=== PATIENT | female | born 1945 | race Asian ===

== ENCOUNTER 2016-12-13 06:43 | Outpatient (CLI) | payer MEDICARE, BC | END 2016-12-13 06:44 | disposition home or self-care (01) | DX: E78.5 Hyperlipidemia, unspecified (principal); E11.9 Type 2 diabetes mellitus without complications ==

== ENCOUNTER 2017-05-07 11:18 | Outpatient (CLI) | payer MEDICARE, BC ==
[2017-05-07 20:04] LABS: HEMOGLOBIN A1C 0.66 g/dL
== END 2017-05-07 11:19 | disposition home or self-care (01) ==
LOC: LAB.WCP 11:18
PROVIDERS: ATTEND Family Medicine
DX: E11.9 Type 2 diabetes mellitus without complications (principal)
CPT/HCPCS: 36415; 83036

== ENCOUNTER 2017-11-07 08:00 | Outpatient (CLI) | payer MEDICARE, BC ==
[2017-11-07 13:23] LABS: ALBUMIN/GLOBULIN RATIO 1.3 (1.0-2.2); BILIRUBIN,TOTAL 0.8 mg/dL (0.2-1.0); BUN - BLOOD UREA NITROGEN 14 mg/dL (6-20); CALCIUM 9.7 mg/dL (8.5-10.3); CARBON DIOXIDE - CO2 28 mmol/L (21-32); CHLORIDE 98 mmol/L (101-111); CHOL/HDL RATIO 2.6 (<4.4); CHOLESTEROL 169 mg/dL; CREATININE 0.7 mg/dL (0.4-1.0); GFR - MDRD 82 (>89); GLUCOSE 122 mg/dL (70-100); HDL CHOLESTEROL 65 mg/dL; LDL/HDL RATIO 1.1 (<4.4); POTASSIUM 3.5 mmol/L (3.5-5.0); SODIUM 136 mmol/L (135-145); TOTAL PROTEIN 8.2 g/dL (6.7-8.2); TRIGLYCERIDES 159 mg/dL; VLDL CHOLESTEROL 32 mg/dL
[2017-11-07 13:31] LABS: HEMOGLOBIN A1C 0.72 g/dL
== END 2017-11-07 08:01 | disposition home or self-care (01) ==
LOC: LAB.WCP 08:00
PROVIDERS: ATTEND Family Medicine
DX: I10 Essential (primary) hypertension (principal); E11.9 Type 2 diabetes mellitus without complications; E78.5 Hyperlipidemia, unspecified
CPT/HCPCS: 36415; 80053; 80061; 82043; 83036

== ENCOUNTER 2018-04-15 11:13 | Outpatient (CLI) | payer MEDICARE, BC ==
[2018-04-15 20:08] LABS: HB2 TOTAL 13.3 g/dL; HEMOGLOBIN A1C 0.65 g/dL; HEMOGLOBIN A1C % 6.6 % (4.6-6.2)
== END 2018-04-15 11:14 ==
LOC: LAB.WCP 11:13
PROVIDERS: ATTEND Family Medicine
DX: I10 Essential (primary) hypertension (principal); E11.9 Type 2 diabetes mellitus without complications
CPT/HCPCS: 36415; 83036

== ENCOUNTER 2018-09-15 19:52 | Emergency (ER) | payer MEDICARE, BC ==
--- NOTE | 2018-09-15 22:19 | ED Physician Documentation ---
PD HPI HEADACHE - Stated complaint Stated Complaint: HEAD PX/LT SIDE - Chief complaint Chief Complaint: Neuro - History obtained from History obtained from: Patient - History of Present Illness Timing - onset: Today (early afternoon) Timing - onset during: Light activity Timing - details: Gradual onset, Waxing and waning Pain level now: 6 Worst headache ever?: No: Worst headache ever? Location: Back, Left Quality: Throbbing, Aching Associated symptoms: Nausea (mild). No: Fever, Stiff neck, Vomiting, Weakness, Numbness, Vision changes Improved by: Other (improved after taking aleve (also took tylenol and excedrin earlier today, although those did not seem to provide any relief)) Worsened by: Other (no exacerbating factors) Similar symptoms before: Has not had sx before Recently seen: Not recently seen Review of Systems Constitutional: denies: Fever, Chills, Sweats Eyes: denies: Loss of vision, Decreased vision Neurologic: reports: Headache. denies: Generalized weakness, Focal weakness, Numbness, Confused, Altered mental status, Head injury PD PAST MEDICAL HISTORY - Past Medical History Cardiovascular: Hypertension, High cholesterol Respiratory: None Endocrine/Autoimmune: Type 2 diabetes GI: None TOBACCO SHAKER: Breast cancer : None HEENT: None Psych: None Musculoskeletal: None Derm: None - Past Surgical History Past Surgical History: Yes General: Cholecystectomy /TOBACCO SHAKER: Mastectomy - Present Medications Home Medications: Ambulatory Orders Medication Instructions Recorded Confirmed Aspirin [Children's Aspirin] 81 mg PO DAILY 02/13/14 09/01/18 Hydrochlorothiazide 25 mg PO DAILY 02/13/14 09/01/18 Lovastatin 10 mg PO DAILY 02/13/14 09/01/18 Metoprolol Tartrate 50 mg PO BID 02/13/14 09/01/18 Potassium Chloride [Klor-Con M20] 20 meq PO BID 02/13/14 09/01/18 metFORMIN [Glucophage] 500 mg PO BID 02/13/14 09/01/18 Ascorbic Acid [Vitamin C] 1,000 mg PO BID 11/15/14 09/01/18 Cholecalciferol (Vitamin D3) 400 unit PO DAILY 11/15/14 09/01/18 [Vitamin D] Ranitidine HCl [Zantac] 150 mg PO DAILY 03/28/15 09/01/18 Lactobac No.41/Bifidobact No.7 1 tab PO DAILY 03/03/18 09/01/18 [Probiotic-10 3 Billion Cell Cp] Palbociclib [Ibrance] 125 mg PO DAILY 03/31/18 09/01/18 Ondansetron Odt [Zofran] 4 mg TL Q6H PRN #10 tablet 09/16/18 oxyCODONE/ACET 5/325 [Percocet 5 1 - 2 each PO Q6H PRN #14 tablet 09/16/18 mg/325 mg] - Allergies Allergies/Adverse Reactions: Allergies Allergy/AdvReac Type Severity Reaction Status Date / Time cephalexin AdvReac Dizziness Verified 09/15/18 20:07 hydrocodone bitartrate * AdvReac vomiting Verified 09/15/18 20:07 [From Vicodin] - Social History Does the pt smoke?: No Smoking Status: Never smoker Does the pt drink ETOH?: No Does the pt have substance abuse?: No - Immunizations Immunizations are current?: No Immunizations: TDAP >10years/unknown PD ED PE NORMAL - Vitals Vital signs reviewed: Yes - General General: Alert and oriented X 3, No acute distress, Well developed/nourished - HEENT HEENT: PERRL, EOMI - Neck Neck: Supple, no meningeal sign - Neuro Neuro: Alert and oriented X 3, senior writer 2-12 intact, No motor deficit, No sensory deficit, Normal speech Eye Opening: Spontaneous Motor: Obeys Commands Verbal: Oriented GCS Score: 15 Results - Vitals Vitals: Vital Signs - 24 hr 09/15/18 09/16/18 20:02 00:19 Temperature 36.1 C L Heart Rate 61 51 L Respiratory 16 16 Rate Blood Pressure 187/49 H 160/56 H O2 Saturation 100 99 Oxygen O2 Source Room air - Rads (name of study) CT head Radiology: Prelim report reviewed, See rad report PD MEDICAL DECISION MAKING - ED course Complexity details: reviewed results, re-evaluated patient, considered differential, d/w patient, d/w family Departure - Departure Disposition: 01 Home, Self Care Clinical Impression: Headache Condition: Good Instructions: ED Cephalgia Unspecified Follow-Up: Juliana Cassidy MD [Primary Care Provider] - (2-3 days if symptoms persist) Prescriptions: Ondansetron Odt [Zofran] 4 mg TL Q6H PRN #10 tablet PRN Reason: Nausea / Vomiting oxyCODONE/ACET 5/325 [Percocet 5 mg/325 mg] 1 - 2 each PO Q6H PRN #14 tablet PRN Reason: Pain Discharge Date/Time: 09/16/18 00:20
[2018-09-15] MEDS ORDERED: IBUPROFEN 400 MG TABLET PO STA (22:31)
--- NOTE | 2018-09-15 23:44 | CT Report ---
Reason: headache Procedure Date: 09/15/2018 Accession Number: [id number] / [id number] Procedure: CT - Head W/O CPT Code: FULL RESULT: EXAM: CT HEAD EXAM DATE: 09/15/2018 11:14 PM. CLINICAL HISTORY: Headache. COMPARISON: HEAD W/O 02/01/2015 8:30 PM, BRAIN 02/02/2015 8:42 AM. TECHNIQUE: Multiaxial CT images were obtained from the foramen magnum to the vertex. Reformats: Sagittal and coronal. IV contrast: None. In accordance with CT protocol optimization, one or more of the following dose reduction techniques were utilized for this exam: automated exposure control, adjustment of mA and/or KV based on patient size, or use of iterative reconstructive technique. FINDINGS: Parenchyma: No intraparenchymal hemorrhage. No evidence of mass, midline shift, or CT findings of acute infarction. Cox-white differentiation is distinct. Mild diffuse chronic microangiopathic white matter changes are evident. Extraaxial Spaces: Normal for age. No subdural or epidural collections identified. Ventricles: The ventricles and cortical sulci are mildly enlarged, consistent with age-related tissue loss. Sinuses and orbits: Imaged paranasal sinuses, orbits, and mastoids show no significant abnormality. Bones: No evidence of fracture or calvarial defect. Other: Mild intracranial atherosclerosis is noted. IMPRESSION: Generalized age-related cortical atrophic changes without evidence of acute intracranial abnormality. RADIA
[2018-09-16] MEDS ORDERED: ONDANSETRON ODT 4 MG Prepack 2 TL STA (00:01)
[2018-09-16] MEDS ORDERED: oxyCODONE/ACET 5/325 Prepack 4 PO STA (00:01)
[2018-09-16 00:20] VITALS: BP 160/56
== END 2018-09-16 00:20 | disposition home or self-care (01) ==
LOC: ED 19:52
DX: R51 Headache (principal); I10 Essential (primary) hypertension; E78.00 Pure hypercholesterolemia, unspecified; E11.9 Type 2 diabetes mellitus without complications; Z79.82 Long term (current) use of aspirin
CPT/HCPCS: 70450; 99283; A9270

== ENCOUNTER 2019-04-08 19:22 | Outpatient (CLI) | payer MEDICARE, BC | END 2019-04-08 19:23 | disposition critical access hospital (66) | LOC: EMS 19:22 | PROVIDERS: ATTEND Surgery | DX: R11.2 Nausea with vomiting, unspecified (principal); R19.7 Diarrhea, unspecified; R53.1 Weakness; R51 Headache | CPT/HCPCS: A0425; A0427 ==

== ENCOUNTER 2019-04-08 19:42 | Emergency (ER) | payer MEDICARE, BC ==
[2019-04-08 20:18] LABS: BASOPHILS % (AUTO) 0.2 %; EOSINOPHILS % (AUTO) 0.2 %; HGB - HEMOGLOBIN 11.4 g/dL (12.0-16.0); LYMPHOCYTES # (AUTO) 0.3 10^3/uL (1.5-3.5); LYMPHOCYTES % (AUTO) 16.1 %; MEAN CORPUSCULAR HEMOGLOBIN 37.9 pg (27.0-31.0); MEAN CORPUSCULAR HGB CONC 34.1 g/dL (32.0-36.0); MEAN CORPUSCULAR VOLUME 111.1 fL (81.0-99.0); MEAN PLATELET VOLUME 6.5 fL (7.9-10.8); MONOCYTES # (AUTO) 0.1 10^3/uL (0.0-1.0); MONOCYTES % (AUTO) 3.3 %; NEUTROPHILS # (AUTO) 1.3 10^3/uL (1.5-6.6); NEUTROPHILS % (AUTO) 80.2 %; PLT - PLATELET COUNT 203 10^3/uL (130-450); RED BLOOD COUNT 3.02 10^6/uL (4.20-5.40); RED CELL DISTRIBUTION WIDTH 14.4 % (12.0-15.0)
[2019-04-08 20:22] LABS: ALBUMIN 4.1 g/dL (3.2-5.5); ALBUMIN/GLOBULIN RATIO 1.3 (1.0-2.2); BILIRUBIN,TOTAL 0.7 mg/dL (0.2-1.0); CALCIUM 9.2 mg/dL (8.5-10.3); CREATININE 1.2 mg/dL (0.4-1.0); TOTAL PROTEIN 7.3 g/dL (6.7-8.2)
[2019-04-08 20:27] LABS: WHITE BLOOD COUNT 1.7 x10^3/uL (4.8-10.8)
[2019-04-08 21:17] LABS: PLATELET ESTIMATE, MANUAL NORMAL (130-450,000) (NORMAL); PLATELET MORPHOLOGY NORMAL APPEARANCE (NORMAL); RBC MORPHOLOGY (MULTIPLE) 2+ MACROCYTOSIS (NORMAL)
--- NOTE | 2019-04-08 21:33 | ED Physician Documentation ---
PD HPI NVD - Stated complaint Stated Complaint: N/V/D, WEAKNESS, ABD PAIN - Chief complaint Chief Complaint: Abd Pain - History obtained from History obtained from: Patient - History of Present Illness Timing - onset: Today (this afternoon, shortly after lunch, with some abd pain, nausea diarrhea few times, then vomiting few times. Took imodium with less diarrhea.) Timing - duration: Hours (6-7) Timing - details: Abrupt onset, Still present, Waxing and waning Associated symptoms: Abdominal pain, Loss of appetite. No: Fever, Hematemesis, Hematochezia Contributing factors: No: Sick contact, Bad food, Recent antibiotics Similar symptoms before: Has not had sx before Recently seen: Not recently seen Review of Systems Constitutional: denies: Fever, Chills, Myalgias Nose: denies: Rhinorrhea / runny nose, Congestion Throat: denies: Sore throat Respiratory: denies: Cough GI: reports: Abdominal Pain, Nausea, Vomiting, Diarrhea. 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 : None HEENT: None Psych: None Musculoskeletal: None Derm: None - Past Surgical History Past Surgical History: Yes General: Cholecystectomy /OVERLOCK WAISTLINE JOINER: Mastectomy - Present Medications Home Medications: Ambulatory Orders Medication Instructions Recorded Confirmed Aspirin [Children's Aspirin] 81 mg PO DAILY 02/13/14 03/30/19 Hydrochlorothiazide 25 mg PO DAILY 02/13/14 03/30/19 Lovastatin 10 mg PO DAILY 02/13/14 03/30/19 Metoprolol Tartrate 50 mg PO BID 02/13/14 03/30/19 Potassium Chloride [Klor-Con M20] 20 meq PO BID 02/13/14 03/30/19 metFORMIN [Glucophage] 500 mg PO BID 02/13/14 03/30/19 Ascorbic Acid [Vitamin C] 1,000 mg PO BID 11/15/14 03/30/19 Cholecalciferol (Vitamin D3) 400 unit PO DAILY 11/15/14 03/30/19 [Vitamin D] Ranitidine HCl [Zantac] 150 mg PO DAILY 03/28/15 03/30/19 Lactobac No.41/Bifidobact No.7 1 tab PO DAILY 03/03/18 03/30/19 [Probiotic-10 3 Billion Cell Cp] Palbociclib [Ibrance] 125 mg PO DAILY 03/31/18 03/30/19 Fulvestrant [Faslodex] 1 applic INJ ONCE 09/29/18 03/30/19 Ondansetron Odt [Zofran] 4 mg TL Q6H PRN #10 tablet 04/08/19 - Allergies Allergies/Adverse Reactions: Allergies Allergy/AdvReac Type Severity Reaction Status Date / Time cephalexin AdvReac Dizziness Verified 04/08/19 19:47 hydrocodone bitartrate * AdvReac vomiting Verified 04/08/19 19:47 [From Vicodin] - Social History Does the pt smoke?: No Smoking Status: Never smoker Does the pt drink ETOH?: No Does the pt have substance abuse?: No - Immunizations Immunizations are current?: No Immunizations: TDAP >10years/unknown PD ED PE NORMAL - Vitals Vital signs reviewed: Yes - General General: Alert and oriented X 3, No acute distress, Well developed/nourished - HEENT HEENT: Moist mucous membranes, Pharynx benign - Neck Neck: Supple, no meningeal sign, No adenopathy - Cardiac Cardiac: RRR, No murmur - Abdomen Abdomen: Soft, Non tender, Non distended, Other (Not tender at this time. ). No: Normal bowel sounds (diminished) Results - Vitals Vitals: Vital Signs - 24 hr 04/08/19 04/08/19 19:44 22:06 Temperature 36.6 C Heart Rate 65 60 Respiratory 16 16 Rate Blood Pressure 160/69 H 150/64 H O2 Saturation 98 97 Oxygen O2 Source Room air - Labs Labs: Laboratory Tests 04/08/19 04/08/19 04/08/19 20:03 20:03 21:30 WBC 1.7 L* RBC 3.02 L Hgb 11.4 L Hct 33.5 L MCV 111.1 H MCH 37.9 H MCHC 34.1 RDW 14.4 Plt Count 203 MPV 6.5 L Neut # (Auto) 1.3 L Lymph # (Auto) 0.3 L [place] # (Auto) 0.1 Eos # (Auto) 0.0 Baso # (Auto) 0.0 Absolute Nucleated RBC 0.00 Nucleated RBC % 0.1 WBC Morphology NORMAL APPEARANCE Platelet Estimate NORMAL (130-450,000) Platelet Morphology NORMAL APPEARANCE RBC Morph Micro Appear 2+ MACROCYTOSIS Sodium 138 Potassium 4.1 Chloride 101 Carbon Dioxide 27 Anion Gap 10.0 BUN 22 H Creatinine 1.2 H Estimated GFR (MDRD) 44 L Glucose 125 H Calcium 9.2 Total Bilirubin 0.7 AST 24 ALT 22 Alkaline Phosphatase 37 L Total Protein 7.3 Albumin 4.1 Globulin 3.2 Albumin/Globulin Ratio 1.3 Lipase 53 H Urine Color YELLOW Urine Clarity CLEAR Urine pH 6.0 Ur Specific [place] 1.010 Urine Protein NEGATIVE Urine Glucose (UA) NEGATIVE Urine Ketones TRACE Urine Occult Blood TRACE-INTA Urine Nitrite NEGATIVE Urine Bilirubin NEGATIVE Urine Urobilinogen 0.2 (NORMAL) Ur Leukocyte Esterase NEGATIVE Ur Microscopic Review NOT INDICATED Urine Culture Comments NOT INDICATED PD MEDICAL DECISION MAKING - ED course Complexity details: considered differential (She is having less diarrhea after an Imodium at home. She states her abdominal pain is crampy and intermittent. She is not having any tenderness at this time. She is still having some nausea but that feels improved with Zofran by EMS. She is given a little bit of IV fluids. Otherwise I do not feel the imaging or further work-up is needed. I talked about this with her and shared decision was to just have her home with likely a viral illness.), d/w patient Departure - Departure Disposition: 01 Home, Self Care Clinical Impression: Nausea vomiting and diarrhea Condition: Stable Record reviewed to determine appropriate education?: Yes Instructions: ED Diet Vomiting Diarrhea Follow-Up: Juliana Cassidy MD [Primary Care Provider] - Prescriptions: Ondansetron Odt [Zofran] 4 mg TL Q6H PRN #10 tablet PRN Reason: Nausea / Vomiting Comments: I think this may have been just a food intolerance or perhaps a viral stomach flu. Hopefully will be just for a day and better into tomorrow. Use ondansetron if needed for nausea. Imodium if needed for diarrhea. Recheck if not improved over the next day or 2 return sooner if worsening. Discharge Date/Time: 04/08/19 23:22
[2019-04-08 21:41] LABS: BILIRUBIN,URINE NEGATIVE (NEGATIVE); GLUCOSE, URINE (UA) NEGATIVE (NEGATIVE); KETONES,URINE (UA) TRACE mg/dL (NEGATIVE); LEUKOCYTE ESTERASE, URINE NEGATIVE (NEGATIVE); NITRITE,URINE NEGATIVE (NEGATIVE); OCCULT BLOOD,URINE TRACE-INTA (NEGATIVE); PROTEIN,URINE NEGATIVE (NEGATIVE); UROBILINOGEN,URINE 0.2 (NORMAL) E.U./dL (NORMAL)
[2019-04-08 21:42] LABS: CLARITY,URINE CLEAR (CLEAR)
[2019-04-08] MEDS ORDERED: KETOROLAC 15 MG/ML VIAL IVP STA (21:52)
[2019-04-08] MEDS ORDERED: SODIUM CHLORIDE 0.9% 1,000 ML IV ONE (21:52)
[2019-04-08] MEDS ORDERED: MAG HYDROX/AL HYDROX/SIMETH 30 ML UDC PO STA (21:52)
[2019-04-08] MEDS ORDERED: ONDANSETRON ODT 4 MG Prepack 2 TL PRN (21:53)
[2019-04-08 22:06] VITALS: BP 150/64
== END 2019-04-08 23:22 | disposition home or self-care (01) ==
LOC: EDUNIT# → ED 19:42
DX: R11.2 Nausea with vomiting, unspecified (principal); R19.7 Diarrhea, unspecified; I10 Essential (primary) hypertension; E11.9 Type 2 diabetes mellitus without complications; Z79.84 Long term (current) use of oral hypoglycemic drugs; Z79.82 Long term (current) use of aspirin
CPT/HCPCS: 36415; 80053; 81003; 83690; 85025; 96361; 96374; 99283; A9270; 81001; 87086

== ENCOUNTER 2019-10-06 23:41 | Emergency (ER) | payer MEDICARE, BC ==
[2019-10-07] MEDS ORDERED: LIDOCAINE VISCOUS 2% 15 ML UDC MM STA ×2 (00:16→02:07)
[2019-10-07] MEDS ORDERED: SODIUM CHLORIDE 0.9% 1,000 ML IV ONE (00:16)
[2019-10-07] MEDS ORDERED: MAG HYDROX/AL HYDROX/SIMETH 30 ML UDC PO STA ×2 (00:16→02:08)
--- NOTE | 2019-10-07 00:18 | ED Physician Documentation ---
PD HPI NVD - Stated complaint Stated Complaint: N/V/D - Chief complaint Chief Complaint: Abd Pain - History obtained from History obtained from: Patient, Family - History of Present Illness Timing - onset: Today Timing - duration: Hours Timing - details: Gradual onset, Still present Associated symptoms: Abdominal pain, Loss of appetite Contributing factors: Sick contact Improved by: Meds Similar symptoms before: Diagnosis (viral gastroenteritis) Recently seen: Not recently seen - Additonal information Additional information: 74-year-old female with a history of recurrent breast cancer has developed nausea vomiting and diarrhea today and she knows that she and her traveled from [place] and have arrived here today. She states that he was sick yesterday with vomiting and diarrhea and his diarrhea was better with Imodium. He is better today and she is sick today. She has developed nausea and epigastric pain and her chief complaint tonight is her epigastric pain does not allow her to sleep. She has taken 4 doses of Imodium and her diarrhea has slowed down. Review of Systems Constitutional: reports: Chills, Myalgias, Fatigue Ears: denies: Ear pain Nose: denies: Congestion Throat: denies: Sore throat Cardiac: denies: Chest pain / pressure Respiratory: denies: Dyspnea, Cough GI: reports: Abdominal Pain, Nausea, Diarrhea : denies: Dysuria, Frequency Musculoskeletal: reports: Back pain. denies: Neck pain, Extremity pain Neurologic: reports: Generalized weakness. 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 : None HEENT: None Psych: None Musculoskeletal: None Derm: None - Past Surgical History Past Surgical History: Yes General: Cholecystectomy /REGISTRAR ASSISTANT: Mastectomy - Present Medications Home Medications: Ambulatory Orders Medication Instructions Recorded Confirmed Aspirin [Children's Aspirin] 81 mg PO DAILY 02/13/14 08/31/19 Hydrochlorothiazide 25 mg PO DAILY 02/13/14 08/31/19 Lovastatin 10 mg PO DAILY 02/13/14 08/31/19 Metoprolol Tartrate 50 mg PO BID 02/13/14 08/31/19 Potassium Chloride [Klor-Con M20] 20 meq PO BID 02/13/14 08/31/19 metFORMIN [Glucophage] 500 mg PO BID 02/13/14 08/31/19 Ascorbic Acid [Vitamin C] 1,000 mg PO BID 11/15/14 08/31/19 Cholecalciferol (Vitamin D3) 400 unit PO DAILY 11/15/14 08/31/19 [Vitamin D] Lactobac No.41/Bifidobact No.7 1 tab PO DAILY 03/03/18 08/31/19 [Probiotic-10 3 Billion Cell Cp] Palbociclib [Ibrance] 125 mg PO DAILY 03/31/18 08/31/19 Fulvestrant [Faslodex] 1 applic INJ ONCE 09/29/18 08/31/19 Ondansetron Odt [Zofran] 4 mg TL Q6H PRN #10 tablet 04/08/19 08/31/19 Omeprazole Magnesium [Prilosec] 2.5 mg PO DAILY 07/27/19 08/31/19 Ondansetron Odt [Zofran] 4 mg TL Q6H PRN #10 tablet 10/07/19 - Allergies Allergies/Adverse Reactions: Allergies Allergy/AdvReac Type Severity Reaction Status Date / Time cephalexin AdvReac Dizziness Verified 10/06/19 23:45 hydrocodone bitartrate * AdvReac vomiting Verified 10/06/19 23:45 [From Vicodin] - Social History Does the pt smoke?: No Smoking Status: Never smoker Does the pt drink ETOH?: No Does the pt have substance abuse?: No - Immunizations Immunizations are current?: No Immunizations: TDAP >10years/unknown PD ED PE NORMAL - Vitals Vital signs reviewed: Yes (hypertensive) - General General: Alert and oriented X 3, No acute distress, Well developed/nourished - HEENT HEENT: Atraumatic, PERRL, EOMI - Neck Neck: Supple, no meningeal sign - Cardiac Cardiac: RRR, No murmur - Respiratory Respiratory: No respiratory distress, Clear bilaterally - Abdomen Abdomen: Soft, Other (mild epigastric tenderness without garding/rebound tenderness) - Back Back: No CVA TTP, No spinal TTP - Derm Derm: Normal color, Warm and dry, No rash - Extremities Extremities: No deformity, No edema - Neuro Neuro: Alert and oriented X 3, civil structural designer 2-12 intact, No motor deficit, No sensory d eficit, Normal speech Eye Opening: Spontaneous Motor: Obeys Commands Verbal: Oriented GCS Score: 15 - Psych Psych: Normal mood, Normal affect Results - Vitals Vitals: Vital Signs - 24 hr 10/06/19 23:45 Temperature 37.1 C Heart Rate 80 Respiratory 16 Rate Blood Pressure 152/76 H O2 Saturation 98 Oxygen O2 Source Room air - Labs Labs: Laboratory Tests 10/07/19 10/07/19 10/07/19 00:20 00:20 00:20 WBC 3.8 L RBC 2.77 L Hgb 10.9 L Hct 30.8 L MCV 111.2 H MCH 39.4 H MCHC 35.4 RDW 12.8 Plt Count 139 MPV 10.4 Neut # (Auto) 3.2 Lymph # (Auto) 0.3 L [place] # (Auto) 0.3 Eos # (Auto) 0.0 Baso # (Auto) 0.0 Absolute Nucleated RBC 0.00 Nucleated RBC % 0.0 Manual Slide Review Indicated Platelet Estimate NORMAL (130-450,000) RBC Morph Micro Appear 1+ MACROCYTOSIS Sodium 132 L Potassium 3.3 L Chloride 96 L Carbon Dioxide 25 Anion Gap 11.0 BUN 17 Creatinine 0.9 Estimated GFR (MDRD) 61 L Glucose 155 H Lactic Acid 2.3 H Calcium 8.9 Total Bilirubin 0.9 AST 126 H ALT 57 Alkaline Phosphatase 51 Total Protein 7.5 Albumin 4.0 Globulin 3.5 Albumin/Globulin Ratio 1.1 Lipase 56 H Urine Color Urine Clarity Urine pH Ur Specific [place] Urine Protein Urine Glucose (UA) Urine Ketones Urine Occult Blood Urine Nitrite Urine Bilirubin Urine Urobilinogen Ur Leukocyte Esterase Urine RBC Urine WBC Ur Squamous Epith Cells Urine Bacteria Ur Microscopic Review Urine Culture Comments 10/07/19 00:30 WBC RBC Hgb Hct MCV MCH MCHC RDW Plt Count MPV Neut # (Auto) Lymph # (Auto) [place] # (Auto) Eos # (Auto) Baso # (Auto) Absolute Nucleated RBC Nucleated RBC % Manual Slide Review Platelet Estimate RBC Morph Micro Appear Sodium Potassium Chloride Carbon Dioxide Anion Gap BUN Creatinine Estimated GFR (MDRD) Glucose Lactic Acid Calcium Total Bilirubin AST ALT Alkaline Phosphatase Total Protein Albumin Globulin Albumin/Globulin Ratio Lipase Urine Color YELLOW Urine Clarity CLEAR Urine pH 6.0 Ur Specific [place] 1.010 Urine Protein NEGATIVE Urine Glucose (UA) NEGATIVE Urine Ketones NEGATIVE Urine Occult Blood MODERATE H Urine Nitrite NEGATIVE Urine Bilirubin NEGATIVE Urine Urobilinogen 1 (NORMAL) Ur Leukocyte Esterase NEGATIVE Urine RBC 11-25 H Urine WBC 0-3 Ur Squamous Epith Cells FEW Squamous Urine Bacteria Rare Ur Microscopic Review INDICATED Urine Culture Comments NOT INDICATED Procedures - IVC sono (time) 0014 Bedside IVC sono: IVC measures (cm) (1.31), IVC collapsed c insp (cm) (complete), Dehydration (est <1 liter deficit) PD MEDICAL DECISION MAKING - ED course Complexity details: reviewed results, re-evaluated patient, considered differential, d/w patient ED course: 74-year-old female with epigastric abdominal pain and gastroenteritis which appears to be viral has mild dehydration and hypokalemia. She is administered saline and potassium. Her abdominal pain is improved with use of viscous lidocaine and Mylanta from a GI cocktail and she is provided additional Protonix intravenously as well as Carafate. I suspect her additional epigastric pain is related to the viral gastroenteritis. I expect this to resolve. Departure - Departure Disposition: 01 Home, Self Care Clinical Impression: Gastroenteritis Instructions: ED Gastroenteritis Viral Follow-Up: Dontrell Farris DO [Primary Care Provider] - Prescriptions: Ondansetron Odt [Zofran] 4 mg TL Q6H PRN #10 tablet PRN Reason: Nausea / Vomiting
[2019-10-07 00:31] LABS: BASOPHILS % (AUTO) 0.3 %; EOSINOPHILS % (AUTO) 0.3 %; HGB - HEMOGLOBIN 10.9 g/dL (12.0-16.0); LYMPHOCYTES # (AUTO) 0.3 10^3/uL (1.5-3.5); LYMPHOCYTES % (AUTO) 7.4 %; MEAN CORPUSCULAR HEMOGLOBIN 39.4 pg (27.0-31.0); MEAN CORPUSCULAR HGB CONC 35.4 g/dL (32.0-36.0); MEAN CORPUSCULAR VOLUME 111.2 fL (81.0-99.0); MEAN PLATELET VOLUME 10.4 fL (7.9-10.8); MONOCYTES # (AUTO) 0.3 10^3/uL (0.0-1.0); MONOCYTES % (AUTO) 7.2 %; NEUTROPHILS # (AUTO) 3.2 10^3/uL (1.5-6.6); NEUTROPHILS % (AUTO) 84.3 %; PLT - PLATELET COUNT 139 10^3/uL (130-450); RED BLOOD COUNT 2.77 10^6/uL (4.20-5.40); RED CELL DISTRIBUTION WIDTH 12.8 % (12.0-15.0); WHITE BLOOD COUNT 3.8 x10^3/uL (4.8-10.8)
[2019-10-07 00:44] LABS: ALBUMIN/GLOBULIN RATIO 1.1 (1.0-2.2); BILIRUBIN,TOTAL 0.9 mg/dL (0.2-1.0); CALCIUM 8.9 mg/dL (8.5-10.3); CREATININE 0.9 mg/dL (0.4-1.0); TOTAL PROTEIN 7.5 g/dL (6.7-8.2)
[2019-10-07 00:46] LABS: BILIRUBIN,URINE NEGATIVE (NEGATIVE); GLUCOSE, URINE (UA) NEGATIVE (NEGATIVE); KETONES,URINE (UA) NEGATIVE (NEGATIVE); LEUKOCYTE ESTERASE, URINE NEGATIVE (NEGATIVE); NITRITE,URINE NEGATIVE (NEGATIVE); OCCULT BLOOD,URINE MODERATE (NEGATIVE); PROTEIN,URINE NEGATIVE (NEGATIVE); UROBILINOGEN,URINE 1 (NORMAL) E.U./dL (NORMAL)
[2019-10-07 00:47] LABS: CLARITY,URINE CLEAR (CLEAR)
[2019-10-07 00:52] LABS: BACTERIA,URINE Rare /HPF (None Seen); SQUAMOUS EPITHELIAL CELL,UR FEW Squamous (<= Few)
[2019-10-07 00:55] LABS: PLATELET ESTIMATE, MANUAL NORMAL (130-450,000) (NORMAL); RBC MORPHOLOGY (MULTIPLE) 1+ MACROCYTOSIS (NORMAL)
[2019-10-07] MEDS ORDERED: POTASSIUM CHLORIDE 20 MEQ TABLET PO STA (00:56)
[2019-10-07] MEDS ORDERED: PANTOPRAZOLE 40 MG VIAL IVP STA (00:58)
[2019-10-07] MEDS ORDERED: SUCRALFATE 1 GM/10 ML UDC PO STA (00:58)
[2019-10-07 02:12] VITALS: BP 132/59
== END 2019-10-07 02:15 | disposition home or self-care (01) ==
LOC: ED 23:41
DX: K52.9 Noninfective gastroenteritis and colitis, unspecified (principal); E86.0 Dehydration; E87.6 Hypokalemia; I10 Essential (primary) hypertension; E11.9 Type 2 diabetes mellitus without complications; Z79.84 Long term (current) use of oral hypoglycemic drugs
CPT/HCPCS: 36415; 80053; 81001; 83605; 83690; 85025; 96374; 99283; 99284; A9270; 81003; 87086

== ENCOUNTER 2019-10-27 08:00 | Outpatient (CLI) | payer MEDICARE, BC ==
[2019-10-27 13:37] LABS: ALBUMIN/GLOBULIN RATIO 1.1 (1.0-2.2); ALKALINE PHOSPHATASE 51 IU/L (42-121); ALT ALANINE AMINOTRANSFERASE 31 IU/L (10-60); AST ASPARTATE AMINOTRANSFERASE 34 IU/L (10-42); BILIRUBIN,TOTAL 0.8 mg/dL (0.2-1.0); BUN - BLOOD UREA NITROGEN 14 mg/dL (6-20); CALCIUM 9.9 mg/dL (8.5-10.3); CARBON DIOXIDE - CO2 28 mmol/L (21-32); CHLORIDE 96 mmol/L (101-111); CHOL/HDL RATIO 2.3 (<4.4); CHOLESTEROL 143 mg/dL; GFR - MDRD 54 (>89); GLUCOSE 122 mg/dL (70-100); HDL CHOLESTEROL 62 mg/dL; LDL CHOLESTEROL,CALCULATED 51 mg/dL; LDL/HDL RATIO 0.8 (<4.4); SODIUM 134 mmol/L (135-145); TOTAL PROTEIN 7.8 g/dL (6.7-8.2); VLDL CHOLESTEROL 30 mg/dL
[2019-10-27 14:20] LABS: HB2 TOTAL 11.9 g/dL; HEMOGLOBIN A1C 0.52 g/dL; HEMOGLOBIN A1C % 6.1 % (4.6-6.2)
== END 2019-10-27 23:59 | disposition home or self-care (01) ==
LOC: LAB.WCP 08:00
PROVIDERS: ATTEND Family Medicine
DX: C50.911 Malignant neoplasm of unspecified site of right female breast (principal); I10 Essential (primary) hypertension; E11.9 Type 2 diabetes mellitus without complications; E78.5 Hyperlipidemia, unspecified
CPT/HCPCS: 36415; 80053; 80061; 83036; 83721

== ENCOUNTER 2020-04-25 09:14 | Outpatient (CLI) | payer MEDICARE, BC | END 2020-04-25 09:15 | disposition home or self-care (01) | LOC: COV 09:14 | PROVIDERS: ATTEND Ophthalmology | DX: Z01.812 Encounter for preprocedural laboratory examination (principal); H25.812 Combined forms of age-related cataract, left eye | CPT/HCPCS: 81599 ==

== ENCOUNTER 2020-04-27 06:39 | Day surgery (SDC) | payer MEDICARE, BC ==
[~2020-04-27 06:39] MED LIST: CYCLOPENTOLATE 1% OPHTH DROPS 2 ML ONE; KETOROLAC 0.45% OPHTH DROPS ONE; PHENYLEPHRINE 2.5% OPHTH 2 ML DROPS ONE; PROPARACAINE 0.5% OPHTH DROPS 15 ML ONE
[2020-04-27] MEDS ORDERED: LACTATED RINGERS 500 ML IV ONE (06:52)
[2020-04-27] MEDS ORDERED: EPINEPHrine 1 MG/ML AMP ONE (06:57)
[2020-04-27] MEDS ORDERED: timoloL maleate 0.5% OPHTH DROPS (10ML) ONE (06:57)
[2020-04-27] MEDS ORDERED: BRIMONIDINE 0.2% OPHTH DROPS 5 ML ONE (06:57)
[2020-04-27] MEDS ORDERED: TRIAMCIN/MOXIFLOX OPHTHALMIC 0.6 ML VIAL IO ONE ×2 (06:57→07:38)
[2020-04-27] MEDS ORDERED: VANCOMYCIN OPHTHALMI 8MG/0.8ML 8 MG/0.8 ML SYRINGE IO ONE ×2 (06:58→07:39)
--- NOTE | 2020-04-27 07:17 | ANESTHESIA ---
Pre-Anesthesia VS, & Labs - Diagnosis L senile combined cataract - Procedure L extraction cataract extraction w lens implant Vital Signs: Temp Pulse Resp BP Pulse Ox 36 C L 60 18 193/70 H 99 04/27/20 06:37 04/27/20 06:37 04/27/20 06:37 04/27/20 06:37 04/27/20 06:37 Height 5 ft Weight (kg) 66 kg Body Mass Index 28.6 - NPO >8 hours - Is Patient ?: No Home Medications and Allergies Aspirin [Children's Aspirin] 81 mg PO DAILY 02/13/14 Hydrochlorothiazide 25 mg PO DAILY 02/13/14 Lovastatin 10 mg PO DAILY 02/13/14 Metoprolol Tartrate 50 mg PO BID 02/13/14 Potassium Chloride [Klor-Con M20] 20 meq PO BID 02/13/14 metFORMIN [Glucophage] 500 mg PO BID 02/13/14 Ascorbic Acid [Vitamin C] 1,000 mg PO BID 11/15/14 Cholecalciferol (Vitamin D3) [Vitamin D] 400 unit PO DAILY 11/15/14 Omeprazole Magnesium [Prilosec] 2.5 mg PO DAILY 07/27/19 Tamoxifen [(None)] 20 mg PO DAILY 03/14/20 Allergies/Adverse Reactions: Allergies Allergy/AdvReac Type Severity Reaction Status Date / Time cephalexin AdvReac Dizziness Verified 04/25/20 11:15 hydrocodone bitartrate * AdvReac vomiting Verified 04/25/20 11:15 [From Vicodin] Anes History & Medical History - Anesthetic History Anesthesia Complications: reports: No previous complications Family history of Anesthesia Complications: Denies Family history of Malignant Hyperthermia: Denies - Medical History Cardiovascular: reports: Hypertension Pulmonary: reports: None Gastrointestinal: reports: GERD, Cholelithiasis Urinary: reports: None Musculoskeletal: reports: Osteoarthritis Endocrine/Autoimmune: reports: Type 2 diabetes Blood Disorders: reports: None Skin: reports: None Smoking Status: Never smoker - Surgical History General: Cholecystectomy Gynecologic: Mastectomy Exam General: Alert, Oriented x3, Cooperative Dental: WNL Mouth Openin Fingerbreadth Neck Mobility: Normal Mallampati classification: II Thyromental Distance: 4-6 cm Respiratory: Lungs clear, Normal breath sounds Cardiovascular: Regular rate Neurological: Normal speech Mental/Cognitive Status: Alert/Oriented X3, Normal for patient Cognitive Status: Within normal limits Plan Anesthesia Type: MAC Consent for Procedure(s) Verified and Reviewed: Yes Code Status: Attempt Resuscitation ASA classification: 2-Mild systemic disease Is this case an emergency?: No
[2020-04-27] MEDS ORDERED: BSS/LIDOCAINE/EPINEPHRINE 1 ML SYRINGE ONE (07:20)
[2020-04-27] MEDS ORDERED: EPINEPHrine 1 MG/ML AMP IVP ONE (07:37)
[2020-04-27] MEDS ORDERED: BRIMONIDINE 0.2% OPHTH DROPS 5 ML OPTH ONE (07:37)
[2020-04-27] MEDS ORDERED: BSS/LIDOCAINE/EPINEPHRINE 1 ML SYRINGE IO ONE (07:38)
[2020-04-27] MEDS ORDERED: CHONDR SULF/HYALURONATE SYRINGE IO ONE (07:38)
[2020-04-27] MEDS ORDERED: TIMOLOL 0.5% OPHTH DROPS OPTH ONE (07:38)
[2020-04-27 07:55] VITALS: BP 135/73
--- NOTE | 2020-04-27 08:10 | OPERATIVE REPORT ---
DATE OF SERVICE: 04/27/2020 Physician: Adam Cordero MD PREOPERATIVE DIAGNOSIS: Visually significant cataract, left eye. This was her first cataract surger y. POSTOPERATIVE DIAGNOSIS: Visually significant cataract, left eye. This was her first cataract surge ry. PROCEDURE: Phacoemulsification with posterior chamber intraocular lens implant, left eye. SURGEON: Adam Cordero MD ANESTHESIA: Monitored anesthesia care. COMPLICATIONS: None. OPERATIVE INDICATIONS: This is a 75-year-old woman with progressive vision loss in the left eye due to 2+ nuclear sclerotic and 3+ cortical cataract. Best corrected visual acuity was 20/40, with glare to hand motion vision in the left eye. Indications for surgery were difficulty reading and difficul ty seeing words, closed caption or game scores on TV. She was consented at length concerning risks a nd benefits of cataract surgery, after which she expressed a desire to proceed with surgery. OPERATIVE PROCEDURE: Patient was taken into OR #3 and placed under monitored anesthesia care. A ondina gical timeout was conducted confirming correct patient, correct procedure, and correct surgical site. She was given topical anesthesia, and prepped and draped in the usual sterile fashion. The eye was entered at the 6 and 3 o'clock positions. Intracameral Shugarcaine was injected into the anterior c hamber, followed by Viscoat. A continuous-tear curvilinear capsulorrhexis was performed. The nucleu s was hydrodissected and phacoemulsified. The cortex was evacuated using automated infusion and aspi ration. Provisc was injected in the capsular bag, and a 22.0 diopter intraocular lens inserted in th e bag. Infusion and aspiration was used to evacuate the viscoelastic materials. The eye was inflate d to physiologic pressure using a balanced salt solution and found to be watertight. Approximately 0 .25 mL of a mixture of triamcinolone and moxifloxacin was injected transsclerally into the vitreous i n the inferotemporal quadrant. An additional 0.55 mL of a mixture of triamcinolone, moxifloxacin and vancomycin was injected subconjunctivally in the superior quadrant for infection and inflammation pr ophylaxis. Wound integrity was checked with Weck-Melony sponges. Patient was taken from the operating room in good condition and given postoperative instructions. TD: 04/27/2020 07:55
== END 2020-04-27 06:40 | disposition home or self-care (01) ==
LOC: SDS 06:39
PROVIDERS: ATTEND Ophthalmology
DX: E11.36 Type 2 diabetes mellitus with diabetic cataract (principal); H25.812 Combined forms of age-related cataract, left eye; Z79.84 Long term (current) use of oral hypoglycemic drugs; I10 Essential (primary) hypertension
CPT/HCPCS: 66984; A9270; J3490; V2632

== ENCOUNTER 2020-05-16 11:51 | Outpatient (CLI) | payer MEDICARE, BC ==
[2020-05-16 12:33] LABS: HB2 TOTAL 12.1 g/dL; HEMOGLOBIN A1C 0.63 g/dL; HEMOGLOBIN A1C % 6.9 % (4.6-6.2)
[2020-05-16 12:45] LABS: CHOL/HDL RATIO 2.4 (<4.4); CHOLESTEROL 141 mg/dL; HDL CHOLESTEROL 60 mg/dL; LDL CHOLESTEROL,CALCULATED 39 mg/dL; LDL/HDL RATIO 0.7 (<4.4); VLDL CHOLESTEROL 42 mg/dL
== END 2020-05-16 23:59 | disposition home or self-care (01) ==
LOC: LAB.R 11:51
PROVIDERS: ATTEND Family Medicine
DX: E11.9 Type 2 diabetes mellitus without complications (principal)
CPT/HCPCS: 80061; 83036; 83721

== ENCOUNTER 2020-06-13 11:28 | Outpatient (CLI) | payer MEDICARE, BC | END 2020-06-13 11:29 | disposition home or self-care (01) | LOC: LAB 11:28 | PROVIDERS: ATTEND Ophthalmology | DX: Z01.812 Encounter for preprocedural laboratory examination (principal); H25.811 Combined forms of age-related cataract, right eye; Z20.828 Contact with and (suspected) exposure to other viral communicable diseases ==

== ENCOUNTER 2020-06-15 07:16 | Day surgery (SDC) | payer MEDICARE, BC ==
[~2020-06-15 07:16] MED LIST changes: +BRIMONIDINE 0.2% OPHTH DROPS 5 ML ONE; +BSS/LIDOCAINE/EPINEPHRINE 1 ML SYRINGE ONE; +EPINEPHrine 1 MG/ML AMP ONE; -PHENYLEPHRINE 2.5% OPHTH 2 ML DROPS ONE; +TRIAMCIN/MOXIFLOX OPHTHALMIC 0.6 ML VIAL IO ONE; +VANCOMYCIN OPHTHALMI 8MG/0.8ML 8 MG/0.8 ML SYRINGE IO ONE; +timoloL maleate 0.5% OPHTH DROPS (10ML) ONE
[2020-06-15] MEDS ORDERED: PHENYLEPHRINE 2.5% OPHTH 2 ML DROPS ONE (07:17)
[2020-06-15] MEDS ORDERED: LACTATED RINGERS 500 ML IV ONE (07:41)
--- NOTE | 2020-06-15 08:06 | ANESTHESIA ---
Pre-Anesthesia VS, & Labs - Diagnosis Right eye cataract - Procedure Right eye ECCE with PHACO and IOL Vital Signs: Temp Pulse Resp BP Pulse Ox 36.4 C L 84 18 178/78 H 97 06/15/20 07:23 06/15/20 07:23 06/15/20 07:23 06/15/20 07:23 06/15/20 07:23 Height 4 ft 11 in Weight (kg) 66.9 kg Body Mass Index 28.6 - NPO >8 hours - Is Patient ?: No - Lab Results Current Lab Results: Laboratory Tests 06/15/20 07:45: POC Whole Bld Glucose 152 H Lab results reviewed: Yes Home Medications and Allergies Aspirin [Children's Aspirin] 81 mg PO DAILY 02/13/14 Hydrochlorothiazide 25 mg PO DAILY 02/13/14 Lovastatin 10 mg PO DAILY 02/13/14 Metoprolol Tartrate 50 mg PO BID 02/13/14 Potassium Chloride [Klor-Con M20] 20 meq PO BID 02/13/14 metFORMIN [Glucophage] 500 mg PO BID 02/13/14 Ascorbic Acid [Vitamin C] 1,000 mg PO BID 11/15/14 Cholecalciferol (Vitamin D3) [Vitamin D] 400 unit PO DAILY 11/15/14 Omeprazole Magnesium [Prilosec] 2.5 mg PO DAILY 07/27/19 Allergies/Adverse Reactions: Allergies Allergy/AdvReac Type Severity Reaction Status Date / Time cephalexin AdvReac Dizziness Verified 05/16/20 12:14 hydrocodone bitartrate * AdvReac vomiting Verified 05/16/20 12:14 [From Vicodin] Anes History & Medical History - Anesthetic History Anesthesia Complications: reports: No previous complications Family history of Anesthesia Complications: Denies Family history of Malignant Hyperthermia: Denies - Medical History Cardiovascular: reports: Hypertension, High cholesterol Pulmonary: reports: None Gastrointestinal: reports: None Urinary: reports: None Neuro: reports: None Musculoskeletal: reports: None Endocrine/Autoimmune: reports: Type 2 diabetes Blood Disorders: reports: None Skin: reports: None Smoking Status: Never smoker - Surgical History General: Cholecystectomy Eyes Ears Nose Throat (EENT): Cataracts Gynecologic: Mastectomy Exam General: Alert, Oriented x3, Cooperative Dental: WNL, Dentures full Upper Mouth Openin Fingerbreadth Neck Mobility: Normal Mallampati classification: III Thyromental Distance: 4-6 cm Respiratory: Lungs clear Cardiovascular: Regular rate (Thick tongue) Plan Anesthesia Type: MAC Consent for Procedure(s) Verified and Reviewed: Yes Code Status: Attempt Resuscitation ASA classification: 3-Severe systemic disease Is this case an emergency?: No
[2020-06-15] MEDS ORDERED: BRIMONIDINE 0.2% OPHTH DROPS 5 ML OPTH ONE (08:53)
[2020-06-15] MEDS ORDERED: PROPARACAINE 0.5% OPHTH DROPS 15 ML EACHEYE ONE (08:54)
[2020-06-15] MEDS ORDERED: EPINEPHrine 1 MG/ML AMP IR ONE (08:54)
[2020-06-15] MEDS ORDERED: CHONDR SULF/HYALURONATE SYRINGE IO ONE (08:54)
[2020-06-15] MEDS ORDERED: BSS/LIDOCAINE/EPINEPHRINE 1 ML SYRINGE IO ONE (08:54)
[2020-06-15] MEDS ORDERED: VANCOMYCIN OPHTHALMI 8MG/0.8ML 8 MG/0.8 ML SYRINGE IO ONE (08:55)
[2020-06-15 09:50] VITALS: BP 134/61
--- NOTE | 2020-06-15 10:10 | OPERATIVE REPORT ---
DATE OF SERVICE: 06/15/2020 Physician: Adam Cordero MD PREOPERATIVE DIAGNOSIS: Visually significant cataract, right eye. Cataract surgery was performed on the left eye in 04/27/2020. POSTOPERATIVE DIAGNOSIS: Visually significant cataract, right eye. Cataract surgery was performed on the left eye in 04/27/2020. PROCEDURE: Phacoemulsification with posterior chamber intraocular lens implant, right eye. SURGEON: Adam Cordero MD ANESTHESIA: Monitored anesthesia care. COMPLICATIONS: None. OPERATIVE INDICATIONS: This is a 75-year-old woman with progressive vision loss in the right eye due to 2+ nuclear sclerotic, 3+ cortical and vacuolar cataract. Best corrected visual acuity was 20/40, with glare to hand motion vision in the right eye. Indications for surgery were difficulty reading and difficulty seeing words, closed caption or game scores on TV. She was consented at length concerning risks and benefits of cataract surgery, after which she expressed a desire to proceed with surgery. OPERATIVE PROCEDURE: Patient was taken to OR #3 and placed under monitored anesthesia care. A surgical timeout was conducted confirming correct patient, correct procedure, and correct surgical site. She was given topical anesthesia, and prepped and draped in the usual sterile fashion. The eye was entered at the 12 and 9 o'clock positions. Intracameral Shugarcaine was injected into the anterior chamber, followed by Viscoat. A continuous-tear curvilinear capsulorrhexis was performed. The nucleus was hydrodissected and phacoemulsified. The cortex was evacuated using automated infusion and aspiration. Provisc was injected in the capsular bag, and a 21.5 diopter intraocular lens inserted in the bag. Infusion and aspiration was used to evacuate the viscoelastic materials. The eye was inflated to physiologic pressure using balanced salt solution and found to be watertight. Approximately 0.25 mL of a mixture of triamcinolone and moxifloxacin was injected trans sclerally into the vitreous in the inferotemporal quadrant. An additional 0.55 mL of a mixture of triamcinolone, moxifloxacin and vancomycin was injected subconjunctivally in the superior quadrant for infection and inflammation prophylaxis. Wound integrity was checked with Weck-Melony sponges. Patient was taken from the Operating Room in good condition and given postoperative instructions. TD: 06/15/2020 09:22 [facility]
== END 2020-06-15 07:17 | disposition home or self-care (01) ==
LOC: SDS 07:16
PROVIDERS: ATTEND Ophthalmology
DX: E11.36 Type 2 diabetes mellitus with diabetic cataract (principal); H25.811 Combined forms of age-related cataract, right eye; Z79.84 Long term (current) use of oral hypoglycemic drugs; Z98.41 Cataract extraction status, right eye; I10 Essential (primary) hypertension
CPT/HCPCS: 66984; A9270; J3490; V2632

== ENCOUNTER 2020-10-11 09:07 | Outpatient (CLI) | payer MEDICARE, BC ==
[2020-10-11] MEDS ORDERED: iohexoL-240 10 ML VIAL IVP ONE (10:48)
--- NOTE | 2020-10-11 15:03 | XRAY Report ---
PROCEDURE: Fluoro Independent Procedure INDICATIONS: DYE STUDY - RT BREAST CA TECHNIQUE: Port-A-Cath was injected with Omnipaque. COMPARISON: None. FINDINGS: Port-A-Cath tubing is intact without evidence of leakage or extravasation. Contrast is identified exi ting the tip of the Port-A-Cath with appearance of retrograde flow surrounding the exterior of the ca theter. IMPRESSION: Contrast demonstrating retrograde flow surrounding the extensor of the distal tip of the catheter sug gestive of fibrin sheath. Reviewed by: Maricruz Bobo MD on 10/11/2020 3:02 PM PST Approved by: Maricruz Bobo MD on 10/11/2020 3:02 PM PST Station ID: [id number]
== END 2020-10-11 09:08 | disposition home or self-care (01) ==
LOC: DI 09:07
PROVIDERS: ATTEND Internal Medicine Hematology & Oncology
DX: C50.911 Malignant neoplasm of unspecified site of right female breast (principal)
CPT/HCPCS: 76000; Q9966

== ENCOUNTER 2020-12-11 11:55 | Outpatient (CLI) | payer MEDICARE, BC ==
[2020-12-11 19:16] LABS: CALCIUM 10.2 mg/dL (8.5-10.3); CREATININE 0.9 mg/dL (0.4-1.0)
[2020-12-11 20:02] LABS: CREATININE,URINE 107.5 mg/dL; MICROALBUM/CREATININE RATIO,UR 3.7 ug/mg (<30.0); MICROALBUMIN,URINE 0.4 mg/dL (0-300.0)
[2020-12-11 20:40] LABS: HEMOGLOBIN A1c% 7.5 % (4.27-6.07)
== END 2020-12-11 23:59 | disposition home or self-care (01) ==
LOC: LAB.WCP 11:55
PROVIDERS: ATTEND Family Medicine
DX: E11.9 Type 2 diabetes mellitus without complications (principal); R00.2 Palpitations
CPT/HCPCS: 36415; 80048; 82043; 82570; 83036; 84443

== ENCOUNTER 2021-03-09 10:00 | Outpatient (CLI) | payer MEDICARE, BC ==
[2021-03-09 11:51] LABS: BASOPHILS % (AUTO) 0.4 %; EOSINOPHILS # (AUTO) 0.1 10^3/uL (0.0-0.7); EOSINOPHILS % (AUTO) 1.4 %; HGB - HEMOGLOBIN 12.3 g/dL (12.0-16.0); LYMPHOCYTES # (AUTO) 1.1 10^3/uL (1.5-3.5); LYMPHOCYTES % (AUTO) 19.6 %; MEAN CORPUSCULAR HEMOGLOBIN 29.6 pg (27.0-31.0); MEAN CORPUSCULAR HGB CONC 33.2 g/dL (32.0-36.0); MEAN CORPUSCULAR VOLUME 89.2 fL (81.0-99.0); MEAN PLATELET VOLUME 10.2 fL (7.9-10.8); MONOCYTES # (AUTO) 0.3 10^3/uL (0.0-1.0); MONOCYTES % (AUTO) 4.8 %; NEUTROPHILS # (AUTO) 4.2 10^3/uL (1.5-6.6); NEUTROPHILS % (AUTO) 73.6 %; PLT - PLATELET COUNT 212 10^3/uL (130-450); RED BLOOD COUNT 4.15 10^6/uL (4.20-5.40); RED CELL DISTRIBUTION WIDTH 13.9 % (12.0-15.0); WHITE BLOOD COUNT 5.7 x10^3/uL (4.8-10.8)
[2021-03-09 12:28] LABS: CREATININE,URINE 106.4 mg/dL; MICROALBUM/CREATININE RATIO,UR 4.7 ug/mg (<30.0); MICROALBUMIN,URINE 0.5 mg/dL (0-300.0)
[2021-03-09 13:30] LABS: ESTIMATED AVERAGE GLUCOSE 154 mg/dL (70-100)
[2021-03-09 13:32] LABS: ALBUMIN 3.9 g/dL (3.2-5.5); ALBUMIN/GLOBULIN RATIO 1.1 (1.0-2.2); ALKALINE PHOSPHATASE 37 IU/L (42-121); ALT ALANINE AMINOTRANSFERASE 23 IU/L (10-60); AST ASPARTATE AMINOTRANSFERASE 33 IU/L (10-42); BILIRUBIN,TOTAL 0.6 mg/dL (0.2-1.0); BUN - BLOOD UREA NITROGEN 21 mg/dL (6-20); CALCIUM 9.5 mg/dL (8.5-10.3); CARBON DIOXIDE - CO2 24 mmol/L (21-32); CHLORIDE 97 mmol/L (101-111); CHOL/HDL RATIO 2.5 (<4.4); CHOLESTEROL 139 mg/dL; CREATININE 0.8 mg/dL (0.4-1.0); GFR - MDRD 70 (>89); GLUCOSE 230 mg/dL (70-100); HDL CHOLESTEROL 55 mg/dL; LDL CHOLESTEROL,CALCULATED 54 mg/dL; POTASSIUM 3.9 mmol/L (3.5-5.0); SODIUM 134 mmol/L (135-145); TOTAL PROTEIN 7.5 g/dL (6.7-8.2); TRIGLYCERIDES 151 mg/dL; VLDL CHOLESTEROL 30 mg/dL
== END 2021-03-09 23:59 | disposition home or self-care (01) ==
LOC: LAB.WCP 10:00
PROVIDERS: ATTEND Family Medicine
DX: E11.9 Type 2 diabetes mellitus without complications (principal)
CPT/HCPCS: 36415; 80053; 80061; 82043; 82570; 83036; 83721; 85025

== ENCOUNTER 2021-09-06 08:00 | Outpatient (CLI) | payer MEDICARE, BC ==
[2021-09-06 12:34] LABS: ALBUMIN 4.1 g/dL (3.2-5.5); ALBUMIN/GLOBULIN RATIO 1.4 (1.0-2.2); BILIRUBIN,TOTAL 0.6 mg/dL (0.2-1.0); CALCIUM 9.6 mg/dL (8.5-10.3); CREATININE 0.8 mg/dL (0.4-1.0); POTASSIUM 3.6 mmol/L (3.5-5.0)
[2021-09-06 13:05] LABS: ESTIMATED AVERAGE GLUCOSE 174 mg/dL (70-100); HEMOGLOBIN A1c% 7.7 % (4.27-6.07)
== END 2021-09-06 23:59 | disposition home or self-care (01) ==
LOC: LAB.WCP 08:00
PROVIDERS: ATTEND Family Medicine
DX: E11.9 Type 2 diabetes mellitus without complications (principal)
CPT/HCPCS: 36415; 80053; 83036

== ENCOUNTER 2022-04-09 09:10 | Outpatient (CLI) | payer MEDICARE, BC ==
[2022-04-09 12:14] LABS: CHOL/HDL RATIO 2.5 (<4.4); CHOLESTEROL 148 mg/dL; HDL CHOLESTEROL 59 mg/dL; LDL CHOLESTEROL,CALCULATED 58 mg/dL; TRIGLYCERIDES 157 mg/dL; VLDL CHOLESTEROL 31 mg/dL
== END 2022-04-09 09:11 | disposition home or self-care (01) ==
LOC: LAB.N 09:10
PROVIDERS: ATTEND Family Medicine
DX: E11.9 Type 2 diabetes mellitus without complications (principal)
CPT/HCPCS: 36415; 80061; 83721

== ENCOUNTER 2022-04-23 08:53 | Outpatient (CLI) | payer MEDICARE, BC ==
[2022-04-23 12:33] LABS: ESTIMATED AVERAGE GLUCOSE 134 mg/dL (70-100); HEMOGLOBIN A1c% 6.3 % (4.27-6.07)
== END 2022-04-23 08:54 | disposition home or self-care (01) ==
LOC: LAB 08:53
PROVIDERS: ATTEND Physician Assistant
DX: E11.9 Type 2 diabetes mellitus without complications (principal)
CPT/HCPCS: 36415; 83036

== ENCOUNTER 2022-10-08 09:38 | Outpatient (CLI) | payer MEDICARE, BC ==
[2022-10-08 13:42] LABS: ESTIMATED AVERAGE GLUCOSE 131 mg/dL (70-100); HEMOGLOBIN A1c% 6.2 % (4.27-6.07)
== END 2022-10-08 09:39 | disposition home or self-care (01) ==
LOC: LAB 09:38
PROVIDERS: ATTEND Physician Assistant
DX: E11.9 Type 2 diabetes mellitus without complications (principal)
CPT/HCPCS: 36415; 83036

== ENCOUNTER 2023-02-27 09:33 | Outpatient (CLI) | payer MEDICARE, BC, MEDICAID ==
[2023-02-27 12:03] LABS: ESTIMATED AVERAGE GLUCOSE 137 mg/dL (70-100); HEMOGLOBIN A1c% 6.4 % (4.27-6.07)
[2023-02-27 12:14] LABS: CHOL/HDL RATIO 2.2 (<4.4); CHOLESTEROL 143 mg/dL; HDL CHOLESTEROL 66 mg/dL; LDL CHOLESTEROL,CALCULATED 54 mg/dL; LDL/HDL RATIO 0.8 (<4.4); TRIGLYCERIDES 114 mg/dL; VLDL CHOLESTEROL 23 mg/dL
== END 2023-02-27 09:34 | disposition home or self-care (01) ==
LOC: LAB.N 09:33
PROVIDERS: ATTEND Physician Assistant
DX: E78.5 Hyperlipidemia, unspecified (principal); E11.9 Type 2 diabetes mellitus without complications
CPT/HCPCS: 36415; 80061; 83036; 83721

== ENCOUNTER 2024-03-02 09:39 | Outpatient (CLI) | payer MEDICARE, MEDICAID ==
[2024-03-02 10:29] LABS: ESTIMATED AVERAGE GLUCOSE 189 mg/dL (70-100); HEMOGLOBIN A1c% 8.2 % (4.27-6.07)
== END 2024-03-02 09:40 | disposition home or self-care (01) ==
LOC: LAB 09:39
PROVIDERS: ATTEND Physician Assistant
DX: E11.9 Type 2 diabetes mellitus without complications (principal)
CPT/HCPCS: 36415; 83036

== ENCOUNTER 2024-06-29 09:19 | Outpatient (CLI) | payer MEDICARE, MEDICAID ==
[2024-06-29 09:39] LABS: CREATININE,URINE 58.7 mg/dL
[2024-06-29 09:45] LABS: MICROALBUMIN,URINE < 0.7 mg/dL
[2024-06-29 09:46] LABS: ALBUMIN 4.1 g/dL (3.2-5.5); ALBUMIN/GLOBULIN RATIO 1.4 (1.0-2.2); ALKALINE PHOSPHATASE 52 IU/L (42-121); ALT ALANINE AMINOTRANSFERASE 23 IU/L (10-60); AST ASPARTATE AMINOTRANSFERASE 22 IU/L (10-42); BILIRUBIN,TOTAL 0.5 mg/dL (0.2-1.0); BUN - BLOOD UREA NITROGEN 14 mg/dL (6-20); CALCIUM 9.9 mg/dL (8.5-10.3); CARBON DIOXIDE - CO2 29 mmol/L (21-32); CHLORIDE 97 mmol/L (101-111); CHOLESTEROL 161 mg/dL; CREATININE 0.8 mg/dL (0.6-1.3); GFR - MDRD 69 (>89); GLUCOSE 223 mg/dL (74-104); HDL CHOLESTEROL 53 mg/dL; LDL CHOLESTEROL,CALCULATED 63 mg/dL; LDL/HDL RATIO 1.2 (<4.4); LIPASE 59 U/L (11-82); SODIUM 132 mmol/L (135-145); TOTAL PROTEIN 7.1 g/dL (6.4-8.9); TRIGLYCERIDES 226 mg/dL; VLDL CHOLESTEROL 45 mg/dL
[2024-06-29 10:05] LABS: ESTIMATED AVERAGE GLUCOSE 154 mg/dL (70-100)
[2024-06-29 10:15] LABS: BASOPHILS % (AUTO) 0.6 %; EOSINOPHILS # (AUTO) 0.1 10^3/uL (0.0-0.7); EOSINOPHILS % (AUTO) 2.1 %; HCT - HEMATOCRIT 39.2 % (37.0-47.0); HGB - HEMOGLOBIN 12.7 g/dL (12.0-16.0); LYMPHOCYTES # (AUTO) 1.3 10^3/uL (1.5-3.5); LYMPHOCYTES % (AUTO) 19.3 %; MEAN CORPUSCULAR HEMOGLOBIN 29.5 pg (27.0-31.0); MEAN CORPUSCULAR HGB CONC 32.4 g/dL (32.0-36.0); MONOCYTES # (AUTO) 0.7 10^3/uL (0.0-1.0); MONOCYTES % (AUTO) 11.2 %; NEUTROPHILS # (AUTO) 4.4 10^3/uL (1.5-6.6); NEUTROPHILS % (AUTO) 66.6 %; PLT - PLATELET COUNT 248 10^3/uL (130-450); RED BLOOD COUNT 4.31 10^6/uL (4.20-5.40); RED CELL DISTRIBUTION WIDTH 14.5 % (12.0-15.0); WHITE BLOOD COUNT 6.5 x10^3/uL (4.8-10.8)
== END 2024-06-29 09:20 | disposition home or self-care (01) ==
LOC: LAB 09:19
PROVIDERS: ATTEND Physician Assistant
DX: E11.9 Type 2 diabetes mellitus without complications (principal); K21.9 Gastro-esophageal reflux disease without esophagitis; R10.13 Epigastric pain
CPT/HCPCS: 36415; 80053; 80061; 82043; 82570; 83036; 83690; 83721; 85025